=== PATIENT | female | born 1975 | race Caucasian/White ===

== ENCOUNTER 2021-12-14 15:00 | Outpatient (RCR) | payer MEDICAID | END 2021-12-18 | disposition home or self-care (01) | LOC: WSPT | DX: M48.061 Spinal stenosis, lumbar region without neurogenic claudication (principal); M54.17 Radiculopathy, lumbosacral region; Z98.1 Arthrodesis status ==

== ENCOUNTER 2022-03-27 15:00 | Outpatient (RCR) | payer MEDICAID | END 2022-04-17 | disposition home or self-care (01) | LOC: WSPT | DX: M54.17 Radiculopathy, lumbosacral region (principal); M48.061 Spinal stenosis, lumbar region without neurogenic claudication; Z98.1 Arthrodesis status ==

== ENCOUNTER 2022-11-15 15:00 | Outpatient (RCR) | payer MEDICAID | END 2022-11-17 | disposition home or self-care (01) | LOC: WSPT | DX: M54.16 Radiculopathy, lumbar region (principal); M48.061 Spinal stenosis, lumbar region without neurogenic claudication; M43.17 Spondylolisthesis, lumbosacral region; Z98.1 Arthrodesis status ==

== ENCOUNTER 2023-02-12 11:15 | Outpatient (RCR) | payer MEDICAID | END 2023-02-17 | disposition home or self-care (01) | LOC: WSPT | DX: M48.061 Spinal stenosis, lumbar region without neurogenic claudication (principal); M54.16 Radiculopathy, lumbar region; M43.17 Spondylolisthesis, lumbosacral region; Z98.1 Arthrodesis status ==

== ENCOUNTER 2023-03-14 12:45 | Outpatient (RCR) | payer MEDICAID | END 2023-03-20 | disposition home or self-care (01) | LOC: WSPT | DX: M54.16 Radiculopathy, lumbar region (principal); M43.17 Spondylolisthesis, lumbosacral region; M48.061 Spinal stenosis, lumbar region without neurogenic claudication; Z98.1 Arthrodesis status ==

== ENCOUNTER 2023-05-15 14:15 | Outpatient (RCR) | payer MEDICAID | END 2023-05-19 | disposition home or self-care (01) | LOC: WSPT | DX: M70.62 Trochanteric bursitis, left hip (principal) | CPT/HCPCS: G0283-GP ==